=== PATIENT | female | born 1965 | race African-American/Black ===

== ENCOUNTER 2016-11-02 18:27 | Inpatient (IN) | payer MEDICAID ==
[~2016-11-02] VITALS: Ht 167.6 cm; Wt 47.2 kg
[~2016-11-02 18:27] MED LIST: ACET1TAB12 PO; ENSURE SUPPLEMENT PO; FERR-63 PO; FOLI-43 PO; HYDR-4005 PO; MULT-1146 PO; ZOLP5TAB2 PO
[2016-11-02] MEDS ORDERED: MORPHINE SULFATE 4 MG/ML CPJ (NOT FOR IM USE) IV STA (20:29)
[2016-11-02] MEDS ORDERED: ONDANSETRON HCL 4MG/2ML VIAL IV STA (20:29)
[2016-11-02] MEDS ORDERED: SODIUM CHLORIDE 0.9% 1,000 ML IV ONE (20:29)
[2016-11-02] MEDS ORDERED: DEXAMETHASONE 10 MG/ML VIAL IV ONE (20:30)
[2016-11-02] MEDS ORDERED: LEVETIRACETAM 500MG PREMIX 100 ML IV ONE (20:30)
[2016-11-02 21:22] LABS: PROTHROMBIN TIME 10.3 sec
[2016-11-02 21:28] LABS: CARBON DIOXIDE 29 mEq/L (21-32); CHLORIDE 104 mEq/L (98-107); CREATINE KINASE 72 IU/L (26-192); ETHANOL BLOOD < 10 mg/dL; TROPONIN I < 0.02 ng/mL (0.00-0.04)
[2016-11-02 21:36] LABS: CARBAMAZEPINE < 0.5 ug/mL (4-12); PHENOBARBITAL < 2.1 ug/mL (15.0-40.0); VALPROIC ACID < 3.0 ug/mL (50-100)
[2016-11-02 21:37] LABS: HEMATOCRIT. 40.3 % (36.0-48.0); HEMOGLOBIN. 13.4 g/dL (12.0-16.0); MEAN CORPUSCULAR HEMOGLOBIN 28.9 pg (28.0-32.0); MEAN CORPUSCULAR VOLUME 86.7 fL (81.0-99.0); MEAN PLATELET VOLUME 7.7 fl (7.4-10.4); PLATELET 171 x1000/uL (130-400); RED BLOOD CELL COUNT 4.65 mill/uL (4.2-5.4); RED CELL DISTRIBUTION WIDTH 14.2 % (11.6-14.6)
[2016-11-02 22:21] LABS: ATYPICAL LYMPHOCYTES 1; PLATELET ESTIMATE NORMAL
[2016-11-03] MEDS ORDERED: LORAZEPAM 2MG/ML CPJ IV ONE
[2016-11-03] MEDS ORDERED: MORPHINE SULFATE 4 MG/ML CPJ (NOT FOR IM USE) IV ONE (00:30)
[2016-11-03] MEDS ORDERED: ONDANSETRON HCL 4MG/2ML VIAL IV ONE (00:30)
[2016-11-03] MEDS ORDERED: ONDANSETRON HCL 4MG/2ML VIAL IV PRN (05:45)
[2016-11-03] MEDS ORDERED: MORPHINE SULFATE 2 MG/ML CPJ (NOT FOR IM USE) IV PRN (05:45)
[2016-11-03] MEDS: SODIUM CHLORIDE 0.9% 1,000 ML IV SCH ×2 (06:41→20:03)
[2016-11-03 08:15] LABS: BASOPHILS % 0.3 % (0.0-2.0); HEMATOCRIT. 37.9 % (36.0-48.0); HEMOGLOBIN. 12.5 g/dL (12.0-16.0); LYMPHOCYTES % 26.2 % (20.0-50.0); MEAN CORPUSCULAR HEMOGLOBIN 28.8 pg (28.0-32.0); MEAN CORPUSCULAR VOLUME 87.1 fL (81.0-99.0); MEAN PLATELET VOLUME 7.5 fl (7.4-10.4); MONOCYTES % 10.2 % (2.0-8.0); NEUTROPHILS % 63.3 % (40.0-76.0); PLATELET 174 x1000/uL (130-400); RED BLOOD CELL COUNT 4.35 mill/uL (4.2-5.4); RED CELL DISTRIBUTION WIDTH 14.7 % (11.6-14.6)
[2016-11-03 08:41] LABS: CARBON DIOXIDE 27 mEq/L (21-32); CHLORIDE 110 mEq/L (98-107)
[2016-11-03] MEDS ORDERED: LORA2VIA33 PO (09:29)
[2016-11-03] MEDS ORDERED: PHEN100C4 PO (09:29)
[2016-11-03] MEDS ORDERED: MEGE400O PO (09:29)
[2016-11-03] MEDS ORDERED: HYDR-523 PO (09:29)
[2016-11-03] MEDS ORDERED: DEXJ4 IJ (09:29)
[2016-11-03] MEDS ORDERED: MULT-1146 PO (09:29)
[2016-11-03] MEDS ORDERED: MEDICATION NOT ON FORMULARY EA (Multivitamin (Multi Vitamin Daily) 1 TAB) PO SCH (09:30)
[2016-11-03] MEDS ORDERED: MEGESTROL ACETATE PO SCH (09:30)
[2016-11-03] MEDS: PHENYTOIN SODIUM EXTENDED 100MG CAPSULE PO SCH ×3 (10:22→17:19)
[2016-11-03] MEDS: FERROUS SULFATE 325MG TABLET PO SCH (10:22)
[2016-11-03] MEDS: MEGESTROL ACETATE 400 MG/10 ML UDC PO SCH (10:22)
[2016-11-03] MEDS: MULTIVITAMINS,THER W-MINERALS TABLET PO SCH (10:22)
[2016-11-03] MEDS: FOLIC ACID 1MG TABLET PO SCH (10:22)
[2016-11-03] MEDS: DEXAMETHASONE 4MG TABLET PO SCH ×2 (10:22→17:20)
[2016-11-03] MEDS: HYDROCODONE/ACETAMINOPHEN 5/325MG TABLET PO PRN (15:49)
[2016-11-03] MEDS: LORAZEPAM 2MG/ML CPJ IV PRN (19:43)
[2016-11-03] MEDS: DIPHENHYDRAMINE 50MG/ML VIAL IV PRN (19:43)
[2016-11-03] MEDS ORDERED: LORAZEPAM 1MG TABLET PO PRN (21:00)
[2016-11-04] MEDS: DIPHENHYDRAMINE 50MG/ML VIAL IV PRN (02:34)
[2016-11-04] MEDS: LORAZEPAM 2MG/ML CPJ IV PRN (02:34)
[2016-11-04] MEDS: SODIUM CHLORIDE 0.9% 1,000 ML IV SCH ×2 (09:32→21:45)
[2016-11-04] MEDS: FERROUS SULFATE 325MG TABLET PO SCH (09:35)
[2016-11-04] MEDS: DEXAMETHASONE 4MG TABLET PO SCH ×2 (09:35→17:24)
[2016-11-04] MEDS: PHENYTOIN SODIUM EXTENDED 100MG CAPSULE PO SCH ×3 (09:35→17:24)
[2016-11-04] MEDS: FOLIC ACID 1MG TABLET PO SCH (09:35)
[2016-11-04] MEDS: MEGESTROL ACETATE 400 MG/10 ML UDC PO SCH (09:35)
[2016-11-04] MEDS: MULTIVITAMINS,THER W-MINERALS TABLET PO SCH (09:37)
[2016-11-04] MEDS: HYDROCODONE/ACETAMINOPHEN 5/325MG TABLET PO PRN (10:11)
[2016-11-05] MEDS: PHENYTOIN SODIUM EXTENDED 100MG CAPSULE PO SCH ×3 (09:09→17:37)
[2016-11-05] MEDS: MULTIVITAMINS,THER W-MINERALS TABLET PO SCH (09:09)
[2016-11-05] MEDS: MEGESTROL ACETATE 400 MG/10 ML UDC PO SCH (09:09)
[2016-11-05] MEDS: FERROUS SULFATE 325MG TABLET PO SCH (09:09)
[2016-11-05] MEDS: FOLIC ACID 1MG TABLET PO SCH (09:09)
[2016-11-05] MEDS: DEXAMETHASONE 4MG TABLET PO SCH ×2 (09:09→17:37)
[2016-11-05] MEDS: SODIUM CHLORIDE 0.9% 1,000 ML IV SCH (13:30)
[2016-11-05] MEDS: HYDROCODONE/ACETAMINOPHEN 5/325MG TABLET PO PRN ×2 (17:39→21:17)
[2016-11-05 21:17] VITALS: BP 100/65
== END 2016-11-05 22:40 | disposition home or self-care (01) | DRG 41 ==
LOC: ER 20:05 → 8WST 11-03 00:31 → EDBEDREQSVC 11-03 00:36 → EDBEDREQ 11-03 00:36 → EDBEDREQTM 11-03 00:36 → ENRESERV 11-03 02:09
PROVIDERS: ADMIT Internal Medicine; ATTEND Internal Medicine
DX: C79.31 Secondary malignant neoplasm of brain (principal); C50.919 Malignant neoplasm of unspecified site of unspecified female breast; E86.0 Dehydration; E44.1 Mild protein-calorie malnutrition; I10 Essential (primary) hypertension; F17.200 Nicotine dependence, unspecified, uncomplicated; F12.90 Cannabis use, unspecified, uncomplicated; J45.909 Unspecified asthma, uncomplicated; R29.6 Repeated falls; R26.0 Ataxic gait; Z92.3 Personal history of irradiation; Z82.49 Family history of ischemic heart disease and other diseases of the circulatory system; Z85.3 Personal history of malignant neoplasm of breast; Z90.12 Acquired absence of left breast and nipple; Z80.9 Family history of malignant neoplasm, unspecified; R63.6 Underweight
CPT/HCPCS: 36415; 70450; 71010; 80048; 80053; 80156; 80165; 80184; 82550; 83880; 84443; 84484; 85025; 85610; 93005; 93970; 96361; 96374; 96375; 97163; 97166; 99285; C1893; G0482; J1100; J1200; J1953; J2060; J2270; J2405; J7030; J8540